=== PATIENT | male | born 1960 | race Hispanic/Latino ===

== ENCOUNTER 2021-09-11 05:50 | Day surgery (SDC) | payer OTHER ==
[2021-09-11] MEDS ORDERED: ASPIRIN EC 325 MG TAB PO ONE (06:09)
[2021-09-11] MEDS ORDERED: SODIUM CHLORIDE 0.9% 1000 ML 1,000 ML ONE (06:14)
[2021-09-11 06:38] LABS: Basophils # (Auto) 0.1 K/mm3 (0.0-0.1); Basophils % (Auto) 0.8 % (0.0-1.8); Eosinophils # (Auto) 0.2 K/mm3 (0.0-0.4); Eosinophils % (Auto) 1.8 % (0.0-4.3); Hematocrit 48.5 % (35.5-45.6); Hemoglobin 15.3 gm/dl (11.8-15.2); Lymphocytes # (Auto) 2.2 K/mm3 (1.2-5.4); Lymphocytes % (Auto) 24.9 % (13.4-35.0); Mean Corpuscular HGB Conc 32 % (32-34); Mean Corpuscular Volume 90 fl (84-94); Monocytes # (Auto) 0.9 K/mm3 (0.0-0.8); Monocytes % (Auto) 10.1 % (0.0-7.3); Platelet Count 263 K/mm3 (140-440); Red Blood Count 5.38 M/mm3 (3.65-5.03); Red Cell Distribution Width 13.4 % (13.2-15.2)
[2021-09-11] MEDS: SODIUM CHLORIDE 0.9% 1000 ML 1,000 ML IV SCH ×2 (07:00→08:05)
[2021-09-11] MEDS ORDERED: SODIUM CHLORIDE 0.9% 500 ML 500 ML IV SCH (07:00)
[2021-09-11 07:05] LABS: INR 0.91 (0.87-1.13)
[2021-09-11 07:06] LABS: Partial Thromboplastin Time 30.8 Sec. (24.2-36.6)
[2021-09-11] MEDS ORDERED: fentaNYL 100 MCG/2 ML INJ ONE (07:20)
[2021-09-11] MEDS ORDERED: HEPARIN 10,000 UNITS/10 ML VIAL ONE (07:21)
[2021-09-11] MEDS ORDERED: MIDAZOLAM 2 MG/2 ML INJ ONE (07:21)
[2021-09-11] MEDS ORDERED: VERAPAMIL 5 MG/2 ML INJ ONE (07:21)
[2021-09-11] MEDS ORDERED: HEPARIN/NS 5000 UNIT/500ML 1,000 ML IR ONE (07:21)
[2021-09-11] MEDS ORDERED: LIDOCAINE (2%) 20 MG/1 ML VIAL 20 ML MDV INFILTRATI ONE ×2 (07:22→08:15)
[2021-09-11] MEDS ORDERED: NITROGLYCERIN SYRINGE 3 ML ONE (07:30)
[2021-09-11] MEDS ORDERED: PRASUGREL 10 MG TAB PO ONE (08:46)
[2021-09-11] MEDS ORDERED: ALUM-MAG HYDROXIDE-SIMETHICONE 200-200-20MG/5ML ORAL LIQD 30 ML ONE (08:47)
--- NOTE | 2021-09-11 09:51 | Cardiac Catherization Report ---
DATE OF PROCEDURE: 09/11/2021 [facility] CATHETERIZATION REFERRING PHYSICIAN: Crow Salamanca MD INDICATIONS FOR PROCEDURE: The patient is a very pleasant 60-year-old gentleman who had a STEMI 5 years ago, presents with unstable angina, abnormal stress test with apical ischemia, referred for left heart catheterization. Risks, benefits, potential alternatives explained at length. It should be noted the patient has mild chronic kidney disease, saw Nephrology, was cleared. IV fluids were given before and after. Creatinine this morning is 1.5. We will reduce the exposure to contrast as much as reasonably possible. PROCEDURE IN DETAIL: The patient was brought to the chemical laboratory technician in a postabsorptive state, prepped and draped in sterile fashion. Christofer's test in right hand is normal. 2 mL of 2% lidocaine used to anesthetize the right wrist. A standard 6-Azerbaijani hydrophilic sheath used to cannulate the right radial artery via modified Seldinger technique. Due to very significant tortuosity and multiple loops in the radial and brachial arteries, unable to pass wire. Multiple wires were tried. We changed to a groin approach. No complications there. A 6-Azerbaijani sheath placed in right common femoral artery via modified Seldinger technique. All exchanges were performed to exchange a J-tip guidewire. JL3.5 catheter used to engage the left main. No dampening or ventricularization. Cineangiography performed in multiple projections. JR4 catheter used to cross the aortic valve under fluoroscopic guidance. Left ventriculography performed in the 30-degree OCONNELL and 30-degree ALBANIAN projections via hand injections, catheter flushed. Manual pullback performed with continuous pressure monitoring. Catheter used to engage the right coronary. No dampening or ventricularization. Cineangiography performed in all projections. DATA: Aortic pressure is 150/70, LV pressure is 150, LVEDP of 18 mmHg. Left ventriculography reveals normal systolic performance, estimated ejection fraction 55-60%. No evidence of aortic stenosis. CORONARY ANATOMY: This is a codominant system. Right coronary is a small to medium sized vessel, courses AV groove, distally bifurcates into posterior descending and posterolateral branches. Stent in the mid right coronary is widely patent. Left main without significant disease, bifurcates into left anterior descending, left circumflex. LAD is a moderate sized vessel, courses anterior intraventricular groove, wraps around the apex. There is a 95% eccentric stenosis in the high mid LAD at the takeoff of first diagonal. This is certainly the culprit lesion, corresponds to chest pain and abnormal nuclear stress test with apical ischemia. Circumflex without significant disease. Left main without significant disease. The right coronary with a patent stent in the mid segment and DOMINIC 3 flow. We decided to proceed with PCI. Heparin given. Abnormal ACT confirmed. Using an EBU 3.75 guide, engaged the left main without difficulty. We used a [place] wire to cross the lesion. We predilated the lesion with 2.5 x 12 balloon. We used a 3.0 x 15 Huber drug-eluting stent deployed at 12 HANSEL for 30 seconds. Excellent angiographic result. The diagonal is mildly jailed, but DOMINIC 3 flow. Intravascular ultrasound was performed, which reveals a well apposed, well-expanded stent. No complications with the final angiogram. We used approximately 35 mL of dye . I directly supervised the administration of moderate sedation with fentanyl and Versed from 8:08 a.m. to 8:57 a.m. CONCLUSIONS: 1. Severe single vessel coronary artery disease with a 95% eccentric ulcerated high mid LAD stenosis in the milieu of unstable angina and abnormal nuclear stress test. A. Successful IVUS-guided percutaneous coronary intervention with placement of drug-eluting stent (Buford 3.0 x 15 mm) with excellent final angiographic and ultrasonographic results, 0% residual stenosis with DOMINIC 3 flow. B. No other obstructive disease noted. C. Mid RCA stent widely patent. 2. Preserved LV function, estimated ejection fraction of 55-60%. 3. No evidence of aortic stenosis. The patient is clinically stable, chest pain free. Images were reviewed with the patient and his . Aspirin, Effient loaded. Standard groin and radial care. Gentle IV fluids. Effient and aspirin compliance reiterated. The patient will follow up with me in the office. TID: [id number] RECEIPT: [id number] KATHY/MARICEL
--- NOTE | 2021-09-11 11:10 | Short Stay Summary ---
Short Stay Documentation Date of service: 09/11/21 - History H&P: obtained from office - Allergies and Medications Current Medications: Allergies No Known Allergies Allergy (Verified 09/11/21 06:17) Home Medications Medication Instructions Recorded Confirmed Last Taken Type AtorvaSTATin [Lipitor] 40 mg PO QHS 09/11/21 09/11/21 09/10/21 History 40 mg Dapagliflozin Propanediol [Farxiga] 10 mg PO DAILY 09/11/21 09/11/21 09/10/21 History Ergocalciferol [Vitamin D2] 1 cap PO DAILY 09/11/21 09/11/21 09/11/21 History 1 cap Glimepiride [Amaryl] 4 mg PO QAM 09/11/21 09/11/21 09/10/21 History Hydralazine HCl 50 mg PO BID 09/11/21 09/11/21 09/10/21 History Isosorbide Mononitrate [Isosorbide 30 mg PO DAILY 09/11/21 09/11/21 09/10/21 History Mononitrate ER] Levothyroxine Sodium 175 mcg PO DAILY 09/11/21 09/11/21 09/10/21 History [Levothyroxine] Metoprolol [Lopressor TAB] 50 mg PO BID 09/11/21 09/11/21 09/10/21 21:00 History Zolpidem (Nf) [Ambien (Nf)] 10 mg PO PRN 09/11/21 09/11/21 09/10/21 History hydroCHLOROthiazide [HCTZ] 25 mg PO QDAY 09/11/21 09/11/21 09/10/21 History lisinopriL [Lisinopril] 20 mg PO DAILY 09/11/21 09/11/21 09/10/21 History Active Medications Sodium Chloride (Nacl 0.9% 1000 Ml) 1,000 mls @ 100 mls/hr IV DIRECT JARON Last Admin: 09/11/21 08:05 Dose: 100 mls/hr Documented by: - Physical exam Integumentary: other (Right radial and right groin cath sites intact, no bleeding or hematoma noted. Distal PMS intact) - Brief post op/procedure progress note Date of procedure: 09/11/21 Pre-op diagnosis: Unstable angina, abnormal stress test Post-op diagnosis: other (Coronary artery disease) Procedure: LHCsee cath report Anesthesia: local Estimated blood loss: none Condition: stable - Disposition Condition at discharge: Good Disposition: 01 HOME / SELF CARE / HOMELESS - Discharge Diagnoses (1) Coronary artery disease Status: Acute (2) Stented coronary artery Status: Acute Short Stay Discharge Plan Activity: advance as tolerated Diet: low fat, low cholesterol, low salt Wound: open to air, keep clean and dry, per your surgeon's advice Additional Instructions: Patient meets low risk clinical criteria for same-day discharge Dual antiplatelet therapy with aspirin 81 mg/Effient 10 mg p.o. daily x1 year. Follow up with: JAMES PHILLIPS MD [Primary Care Provider] - 7 Days THONG SEN MD [Staff Physician] - 7 Days (Patient is a follow-up with Dr. Isaura Sen, [facility] on 10/27/2020 at 10:15 AM in our [place] location. #[id number]) Prescriptions: Prasugrel HCl [Effient] 10 mg PO QDAY 90 Days #90 tablet
--- NOTE | 2021-09-11 12:59 | Electrocardiograph Report ---
[facility] Test Date: 2021-09-11 Test Time: 06:35:04 Pat Name: MAJO GIVENS Department: Room: Gender: M Process Technician: PJ : 1960 Requested By: THONG SEN Order Number: [id number] Reading MD: Brisa Kelley Measurements Intervals [place] Rate: 62 P: -7 TX: 215 QRS: -78 QRSD: 163 T: 91 QT: 459 QTc: 465 Interpretive Statements Atrial-sensed ventricular-paced rhythm No previous ECG available for comparison Electronically Signed On 09-11-2021 12:59:41 EST by Brisa Kelley
--- NOTE | 2021-09-11 13:00 | Electrocardiograph Report ---
[facility] Test Date: 2021-09-11 Test Time: 09:29:47 Pat Name: MAJO GIVENS Department: Room: Gender: M Financial Service Rep: PJ : 1960 Requested By: THONG SEN Order Number: [id number] Reading MD: Brisa Kelley Measurements Intervals [place] Rate: 61 P: -1 GA: 223 QRS: -79 QRSD: 171 T: 91 QT: 454 QTc: 459 Interpretive Statements Atrial-sensed ventricular-paced rhythm Compared to ECG 09/11/2021 06:35:04 No significant changes Electronically Signed On 09-11-2021 13:00:47 EST by Brisa Kelley
[2021-09-11] MEDS ORDERED: traMADol 50 MG TAB PO ONE (16:06)
[2021-09-11 17:04] VITALS: BP 155/68
== END 2021-09-11 18:30 | disposition home or self-care (01) ==
LOC: CATHLABREC 05:50
PROVIDERS: ATTEND Internal Medicine
DX: R07.89 Other chest pain (principal); I25.10 Atherosclerotic heart disease of native coronary artery without angina pectoris; R94.39 Abnormal result of other cardiovascular function study; R06.09 Other forms of dyspnea; E11.65 Type 2 diabetes mellitus with hyperglycemia; I25.2 Old myocardial infarction; I10 Essential (primary) hypertension; E78.00 Pure hypercholesterolemia, unspecified; I44.7 Left bundle-branch block, unspecified; M10.9 Gout, unspecified; Z79.899 Other long term (current) drug therapy; Z98.890 Other specified postprocedural states; Z95.0 Presence of cardiac pacemaker
CPT/HCPCS: 36415; 80048; 82962; 85025; 85610; 85730; 92978; 93005; 93458; 96360; 96361; 99156; 99157; C1725; C1753; C1769; C1874; C1887; C1894; C9600; J1644; J1815; J2250; J3010; J3490; J7030; 92928; Q0162; Q9967